=== PATIENT | female | born 1995 | race Caucasian/White ===

== ENCOUNTER 2020-02-23 07:50 | Inpatient (IN) | payer OTHER ==
[~2020-02-23] VITALS: Ht 160 cm; Wt 80.9 kg
[2020-02-23 08:09] VITALS: BP 134/67
[2020-02-23] MEDS ORDERED: PNV1TABL54 PO (08:20)
[2020-02-23] MEDS ORDERED: RINGERS SOLUTION,LACTATED 1,000 ML IV PRN (08:25)
[2020-02-23] MEDS ORDERED: OXYTOCIN 30 UNITS/LACT RINGERS 500 ML IV ONE ×2 (08:25→16:25)
[2020-02-23] MEDS ORDERED: RINGERS SOLUTION,LACTATED 1,000 ML IV ONE (08:25)
[2020-02-23] MEDS ORDERED: METHYLERGONOVINE MALEATE 0.2 MG/ML VIAL IM PRN (08:30)
[2020-02-23] MEDS ORDERED: OXYGEN THERAPY IH SCH (08:30)
[2020-02-23] MEDS ORDERED: METOCLOPRAMIDE HCL 5 MG/ML 2 ML VIAL IVP PRN (08:30)
[2020-02-23] MEDS ORDERED: CITRIC ACID/SODIUM CITRATE 30 ML SOLUTION UDCUP PO PRN (08:30)
[2020-02-23] MEDS ORDERED: FentaNYL CITRATE-PF 100 MCG/2 ML VIAL IVP PRN (08:30)
[2020-02-23] MEDS ORDERED: BUPIVACAINE HCL/PF 0.25% 10 ML VIAL ONE (08:40)
[2020-02-23] MEDS ORDERED: ROPIVACAINE HCL/PF 0.2% 100 ML ED ONE (08:40)
[2020-02-23 08:52] LABS: BASOPHILS % (AUTO) 0.2 % (0.0-2.0); EOSINOPHILS % (AUTO) 0 % (1.0-6.0); HEMOGLOBIN 10.3 g/dL (12.0-16.0); LYMPHOCYTES # (AUTO) 1.5 K/uL (1.0-4.8); LYMPHOCYTES % (AUTO) 9.8 % (22.0-44.0); MEAN CORPUSCULAR HEMOGLOBIN 25.8 pg (26.0-34.0); MEAN CORPUSCULAR HGB CONC 32.3 G/dL (31.0-37.0); MEAN CORPUSCULAR VOLUME 80 fL (80-100); MONOCYTES # (AUTO) 0.8 K/uL (0.1-1.0); MONOCYTES % (AUTO) 5.4 % (2.0-9.0); NEUTROPHILS # (AUTO) 12.9 K/uL (1.8-7.7); NEUTROPHILS % (AUTO) 84.6 % (40.0-70.0); PLATELET COUNT (AUTO)-OB 221 K/uL (150-450); RED BLOOD CELL COUNT(AUTO) 4.01 MIL/uL (4.00-5.20); RED CELL DISTRIBUTION WIDTH 16.1 % (11.5-14.5)
[2020-02-23] MEDS ORDERED: NALBUPHINE HCL 10 MG/ML VIAL IVP PRN (09:00)
[2020-02-23] MEDS ORDERED: DiphenhydrAMINE HCL 50 MG/ML VIAL IVP PRN (09:00)
[2020-02-23] MEDS ORDERED: ROPIVACAINE HCL/PF 0.2% 100 ML ED PRN (09:00)
[2020-02-23] MEDS ORDERED: ONDANSETRON HCL 4 MG/2 ML VIAL IVP PRN (09:00)
[2020-02-23] MEDS: RINGERS SOLUTION,LACTATED 1,000 ML IV SCH ×3 (09:19→12:21)
[2020-02-23] MEDS ORDERED: OXYTOCIN 30 UNITS/LACT RINGERS 500 ML IV PRN (11:45)
[2020-02-23] MEDS ORDERED: LANOLIN 7 GM OINTMENT TP PRN (16:30)
[2020-02-23] MEDS ORDERED: LIDOCAINE/PF 1% 30 ML VIAL INJ PRN (16:30)
[2020-02-23] MEDS ORDERED: OxyCODONE HCL/ACETAMINOPHEN 5-325 MG TABLET PO PRN ×2 (16:30)
[2020-02-23] MEDS ORDERED: GLYCERIN/WITCH HAZEL LEAF 40 PADS JAR TP PRN (16:30)
[2020-02-23] MEDS ORDERED: BENZOCAINE 20%/MENTHOL 56 GM SPRAY CANISTER TP PRN (16:30)
[2020-02-23] MEDS: MAGNESIUM HYDROXIDE SUSPENSION 30 ML UDCUP PO PRN (22:27)
[2020-02-23] MEDS: IBUPROFEN 800 MG TABLET PO PRN (22:27)
[2020-02-24] MEDS: IBUPROFEN 800 MG TABLET PO PRN ×2 (04:06→20:06)
[2020-02-24 06:27] LABS: BASOPHILS % (AUTO) 0.3 % (0.0-2.0); EOSINOPHILS % (AUTO) 0.2 % (1.0-6.0); HEMATOCRIT 23.6 % (36-46); HEMOGLOBIN 7.8 g/dL (12.0-16.0); LYMPHOCYTES # (AUTO) 2.6 K/uL (1.0-4.8); MEAN CORPUSCULAR HEMOGLOBIN 26.5 pg (26.0-34.0); MEAN CORPUSCULAR HGB CONC 32.9 G/dL (31.0-37.0); MEAN CORPUSCULAR VOLUME 81 fL (80-100); MONOCYTES # (AUTO) 1.3 K/uL (0.1-1.0); NEUTROPHILS # (AUTO) 10.5 K/uL (1.8-7.7); NEUTROPHILS % (AUTO) 72.5 % (40.0-70.0); PLATELET COUNT (AUTO)-OB 176 K/uL (150-450); RED BLOOD CELL COUNT(AUTO) 2.92 MIL/uL (4.00-5.20); RED CELL DISTRIBUTION WIDTH 15.6 % (11.5-14.5)
[2020-02-24] MEDS ORDERED: IBUP-2071 PO (10:24)
[2020-02-24] MEDS ORDERED: FERR-89 PO (10:25)
[2020-02-24] MEDS ORDERED: DOCU-275 PO (10:26)
[2020-02-24] MEDS: MAGNESIUM HYDROXIDE SUSPENSION 30 ML UDCUP PO PRN (20:06)
== END 2020-02-25 09:50 | disposition home or self-care (01) | DRG 807 ==
LOC: OBSVTOIN 07:50 → 4S 07:50
PROVIDERS: ADMIT Obstetrics & Gynecology Obstetrics; ATTEND Obstetrics & Gynecology Obstetrics
PROC: 10D07Z6 Extraction of Products of Conception, Vacuum, Via Natural or Artificial Opening (ICD-10-PCS; principal; 2020-02-23)
PROC: 10907ZC Drainage of Amniotic Fluid, Therapeutic from Products of Conception, Via Natural or Artificial Opening (ICD-10-PCS; 2020-02-23)
PROC: 0W8NXZZ Division of Female Perineum, External Approach (ICD-10-PCS; 2020-02-23)
PROC: 3E033VJ Introduction of Other Hormone into Peripheral Vein, Percutaneous Approach (ICD-10-PCS; 2020-02-23)
PROC: 3E0R3BZ Introduction of Anesthetic Agent into Spinal Canal, Percutaneous Approach (ICD-10-PCS; 2020-02-23)
PROC: 00HU33Z Insertion of Infusion Device into Spinal Canal, Percutaneous Approach (ICD-10-PCS; 2020-02-23)
DX: O80 Encounter for full-term uncomplicated delivery (principal); Z37.0 Single live birth; Z3A.38 38 weeks gestation of pregnancy; Z20.828 Contact with and (suspected) exposure to other viral communicable diseases
CPT/HCPCS: 86850; 86870; 86900; 86901; J2590; J2795; J3490; J7120